=== PATIENT | male | born 1970 | race Caucasian/White ===

== ENCOUNTER 2023-09-09 14:37 | Emergency (ER) | payer MEDICARE, MEDICAID, SELFPAY ==
--- NOTE | 2023-09-09 14:42 | W.ED.PSYCHS ---
HPI - Psych General: Chief Complaint: Psychiatric Symptoms Stated Complaint: drug abuse and wants help Time Seen by Provider: 09/09/23 14:39 Source: patient Mode of arrival: EMS Limitations: no limitations History of Present Illness: Patient is a 52-year-old male who presents to ED today via EMS. Patient states he has been abusing his benzodiazepines and opiate prescription medication for over a decade. He states he often takes more than prescribed and when he runs out early he gets them off the street to tide him over until he is due for refill. He reportedly is requesting drug rehabilitation/detox. At some point he made some type of vague suicidal comment to his sister however patient adamantly states he is not suicidal. He told nursing staff he was not suicidal. He tested negative on her suicidal assessment screening exam. Patient is not homicidal or experiencing hallucinations. He has no physical complaints at this time. MD complaint: other (chronic drug abuse) Onset (ago): year(s) History of same: Yes Relieving factors: none Exacerbating factors: none Context: recent drug abuse Associated symptoms: Deny auditory hallucinations, visual hallucinations, homicidal ideation or suicidal ideation Treatments prior to arrival: none Review of Systems Psych: Denies: paranoia, visual hallucinations, auditory hallucinations, suicidal ideation or homicidal ideation Physical Exam Const: COMMON NORMALS: no acute distress, patient oriented x3, no limitations, alert and well nourished GENERAL APPEARANCE: disheveled ORIENTATION/CONSCIOUSNESS: Yes awake, Yes oriented to person, Yes oriented to place and Yes oriented to time Neuro: CLEMENTE COMA SCALE: document GCS findings Alexander coma scale eye opening: Spontaneous Alexander coma scale verbal response: Orientated Alexander coma scale motor response: Obey commands Alexander coma scale total score: 15 COMMON NORMALS: patient oriented x3, moves all extremities, no focal motor deficits, no sensory deficits noted and gait normal SENSORIUM/ORIENTATION: Yes alert, Yes oriented to person, Yes oriented to place and Yes oriented to time GAIT: Yes Normal gait present Psych: COMMON NORMALS: mental status grossly normal, Normal thought process present, cooperative, normal affect, speech normal, activity/motor behavior normal, denies hallucinations, denies homicidal ideation and denies suicidal ideation APPEARANCE: Yes grossly normal ATTITUDE: Yes calm ACTIVITY/MOTOR BEHAVIOR: Yes appropriate eye contact SPEECH: Yes normal speech MOOD & AFFECT: Yes euthymic mood THOUGHT PROCESS: Normal thought process present ATTENTION/CONCENTRATION: Yes attention grossly intact and Yes concentration grossly intact MEMORY/COGNITION: Yes memory grossly intact and Yes cognition grossly intact INSIGHT: Fair insight present (Psych) JUDGEMENT: Fair judgement present (Psych) Course Vital Signs: Vital signs: Vital Signs Temperature 98.7 F 09/09/23 14:47 Pulse Rate 93 09/09/23 14:47 Respiratory Rate 22 H 09/09/23 14:47 Blood Pressure 140/92 09/09/23 14:47 Pulse Oximetry 94 09/09/23 14:47 Oxygen Delivery Me thod Room Air 09/09/23 14:47 MDM - Psych Medical Decision Making Patient has told me repeatedly that he is not suicidal. He has told nursing staff he is not suicidal. He reports he is not taking excessive medications in any attempt to harm himself or in a suicide attempt. Patient needs a detox/drug rehabilitation facility. I had offered him admission to [facility] but he declines. I did speak to Dr. Tillman in regards to the vague suicidal statement he made to his sister. He feels patient is stable for discharge and agrees with decision to give him resources for drug rehabilitation facilities. During patient's discharge his sister called the ED very upset that we were not hospitalizing patient as she is concerned for his safety. I went in and spoke to patient yet again and confirmed that he is not suicidal. He has no plans to intentionally overdose on his prescription medications. He reports he is not taking an excess of these medications in attempt to kill/harm himself. He is not on a hold and I have no grounds at this time to place him on one. He was given the names, addresses, and phone numbers of two detox/rehab facilities in [facility]. No radiology studies performed this visit Discharge Plan Discharge Patient Disposition: Home Clinical Impression: Polysubstance abuse, Chronic drug abuse Condition: Stable Discharge Orders: Discharge ED (Routine); Ordered 09/09/23 Ordered By: Cindy Alcantar Activity Restrictions/Additional Instructions: As we discussed you indicated you do not wish hospitalization/inpatient psychiatric treatment at this time. You have indicated you are not suicidal or homicidal. If you begin experiencing these thoughts please contact 911 or return to the emergency department immediately. You may try to obtain substance abuse treatment and addiction counseling at [facility] located at [address] [place] [address]. Their phone number is [phone]. Another option is [facility] adult treatment facility located at [address] [place] [address]. Their phone number is [phone]. Coding Level of Care Code ED [employer] for Clifford Fontana
[2023-09-09 14:47] VITALS: BP 140/92; PULSE 93; RESP 22; TEMP 37.1; O2SAT 94
== END 2023-09-09 15:49 | disposition home or self-care (01) ==
PROVIDERS: Emergency Provider Physician Assistant
DX: F19.10 Other psychoactive substance abuse, uncomplicated (principal)
CPT/HCPCS: 99283

== ENCOUNTER 2023-09-09 17:36 | Emergency (ER) | payer MEDICARE, MEDICAID, SELFPAY ==
[2023-09-09 17:50] VITALS: BP 130/95; PULSE 117; RESP 16; TEMP 36.6; O2SAT 97; BMI 38.3
--- NOTE | 2023-09-09 18:03 | ED.C_ITS ---
HPI - Psych General: Chief Complaint: Psychiatric Symptoms Stated Complaint: SI Time Seen by Provider: 09/09/23 17:46 Source: patient Mode of arrival: ambulatory Limitations: no limitations History of Present Illness: Lennie 32-year-old male states that he has been having suicidal thoughts he states over the last few weeks. He has a long history of drug abuse states he is also like to get help getting off his drugs and he states he feels like this is causing him to be suicidal he has no specific plan denies any worsening proving factors. Associated symptoms: Reports depression and suicidal ideation Review of Systems Const: Denies: fever(s), chills, body aches or change in appetite Eyes: Denies: blurry vision or eye discomfort ENMT: Denies: throat pain or dental pain Card: Denies: chest pain Resp: Denies: dyspnea GI: Denies: abdominal pain, nausea, vomiting or diarrhea : Denies: dysuria Musc: Denies: neck pain or back pain Skin/Breast: Denies: rash Neuro: Denies: headache(s) Psych: Reports: depression and suicidal ideation Aaron/Lymph: Denies: easy bruising All/Imm: Denies: urticaria Physical Exam Const: COMMON NORMALS: no acute distress, patient oriented x3 and healthy appearing HENMT: COMMON NORMALS: normocephalic and atraumatic HEAD & SCALP: normocephalic and atraumatic Eye: COMMON NORMALS: Equal, round and reactive pupils present and EOMs intact bilaterally PUPIL: Yes Equal, round and reactive pupils present Neck/C-Spine: COMMON NORMALS: full ROM and supple Chest: COMMONS NORMALS: normal inspection of the chest and normal palpation of entire chest wall Resp: COMMON NORMALS: normal respiratory effort, No retractions, No use of accessory muscles and clear to auscultation bilaterally AUSCULTATION: clear to auscultation bilaterally Cardio: COMMON NORMALS: regular rate, regular rhythm and No murmurs present (Cardio) RATE: regular rate RHYTHM: regular rhythm GI: COMMON NORMALS: Normal to inspection, nondistended, normoactive bowel sounds present, Soft to palpation, non-tender and no masses PALPATION: Yes Soft to palpation Extremity: COMMON NORMALS: normal to inspection and full ROM Neuro: COMMON NORMALS: patient oriented x3, moves all extremities and no focal motor deficits Psych: COMMON NORMALS: mental status grossly normal, Normal thought process present and cooperative THOUGHT PROCESS: Normal thought process present THOUGHT CONTENT: Yes Suicidality present Skin: COMMON NORMALS: no rashes or lesions noted and no wounds GENERAL SKIN EXAM: no rashes or lesions noted Course Vital Signs: Vital signs: Vital Signs Temperature 97.9 F 09/09/23 17:50 Pulse Rate 117 H 09/09/23 17:50 Respiratory Rate 16 09/09/23 17:50 Blood Pressure 130/95 09/09/23 17:50 Pulse Oximetry 97 09/09/23 17:50 Oxygen Delivery Me thod Room Air 09/09/23 17:50 MDM - Psych Medical Decision Making Patient presents for suicidal ideation he is voluntarily is medically cleared is excepted to [facility] as we do not have any bed availability here. Medical Records I reviewed the patient's medical records. Lab Data I reviewed the patient's lab results. 09/09/23 17:52 09/09/23 17:52 Laboratory Results WBC 12.21 10^3/uL (3.29-11.43) H 09/09/23 17:52 RBC 4.74 10^6/uL (3.85-5.65) 09/09/23 17:52 Hgb 15.00 g/dL (11.27-16.99) 09/09/23 17:52 Hct 44.3 % (37-53) 09/09/23 17:52 MCV 93.5 fl (82-101) 09/09/23 17:52 MCH 31.6 pg (27-33) 09/09/23 17:52 MCHC 33.9 g/dL (30-55) 09/09/23 17:52 RDW 13.2 % (12.1-15.1) 09/09/23 17:52 Plt Count 347 10^3/cmm (157-399) 09/09/23 17:52 MPV 9.3 fL (7.4-10.4) 09/09/23 17:52 Neut % (Auto) 75.3 % 09/09/23 17:52 Lymph % (Auto) 15.0 % 09/09/23 17:52 [place] % (Auto) 9.1 % 09/09/23 17:52 Eos % (Auto) 0.0 % 09/09/23 17:52 Baso % (Auto) 0.3 % 09/09/23 17:52 Neut # (Auto) 9.19 10^3/uL (1.8-7.7) H 09/09/23 17:52 Lymph # (Auto) 1.8 10^3/uL (0.8-4.8) 09/09/23 17:52 [place] # (Auto) 1.1 10^3/uL (0.2-0.9) H 09/09/23 17:52 Eos # (Auto) 0.0 10^3/uL (0.0-0.8) 09/09/23 17:52 Baso # (Auto) 0.0 10^3/uL (0.0-0.1) 09/09/23 17:52 Nucleated RBC % (auto) 0 % 09/09/23 17:52 Nucleated RBCs # 0.0 /100WBC 09/09/23 17:52 Sodium 136 mmol/L (136-145) 09/09/23 17:52 Potassium 3.5 mmol/L (3.5-5.1) 09/09/23 17:52 Chloride 96 mmol/L (98-107) L 09/09/23 17:52 Carbon Dioxide 22 mmol/L (22-29) 09/09/23 17:52 Anion Gap 21.5 (5-19) H 09/09/23 17:52 BUN 14 mg/dL (6-20) 09/09/23 17:52 Creatinine 0.7 mg/dL (0.7-1.2) 09/09/23 17:52 GFR Calculation 118.0 mL/min (90-130) 09/09/23 17:52 Glucose 117 mg/dL (65-115) H 09/09/23 17:52 Calculated Osmolality 284 mOsm/kg (285-295) L 09/09/23 17:52 Calcium 10.2 mg/dL (8.5-10.5) 09/09/23 17:52 Total Bilirubin 1.1 mg/dL (0.15-1.2) 09/09/23 17:52 AST 18 U/L (0-40) 09/09/23 17:52 ALT 13 U/L (0-41) 09/09/23 17:52 Alkaline Phosphatase 90 U/L (40-130) 09/09/23 17:52 Total Protein 8.3 g/dL (6.6-8.7) 09/09/23 17:52 Albumin 4.9 g/dL (3.5-5.2) 09/09/23 17:52 Globulin 3.4 g/dL (1.3-4.6) 09/09/23 17:52 Salicylates < 0.3 mg/dL (3-10) L 09/09/23 17:52 Urine Opiates Screen Positive ng/mL (Negative) H 09/09/23 18:15 Acetaminophen < 5.0 ug/mL (10-30) L 09/09/23 17:52 Ur Barbiturates Screen Negative ng/mL (Negative) 09/09/23 18:15 Ur Phencyclidine Scrn Negative ng/mL (Negative) 09/09/23 18:15 Ur Amphetamines Screen Negative ng/mL (Negative) 09/09/23 18:15 U Benzodiazepines Scrn Positive ng/mL (Negative) H 09/09/23 18:15 Urine Cocaine Screen Negative ng/mL (Negative) 09/09/23 18:15 U Marijuana (THC) Screen Positive ng/mL (Negative) H 09/09/23 18:15 Ethyl Alcohol < 10 mg/dL (0-10) 09/09/23 17:52 SARS-CoV-2 Ag (Rapid) negative (Negative) 09/09/23 18:09 No radiology studies performed this visit Discharge Plan Discharge Patient Disposition: Xfer [facility] Clinical Impression: Suicidal ideation Condition: Stable Referrals: Jhon Blevins [Primary Care Provider] - Coding Level of Care Code ED [employer] for Clifford Fontana
[2023-09-09 18:07] LABS: Basophils % 0.3 %; Hematocrit 44.3 % (37-53); Lymphocytes # 1.8 10^3/uL (0.8-4.8); Mean Corpuscular HGB Conc 33.9 g/dL (30-55); Mean Corpuscular Hemoglobin 31.6 pg (27-33); Mean Corpuscular Volume 93.5 fl (82-101); Mean Platelet Volume 9.3 fL (7.4-10.4); Monocytes # 1.1 10^3/uL (0.2-0.9); Monocytes % 9.1 %; Neutrophils # 9.19 10^3/uL (1.8-7.7); Neutrophils % 75.3 %; Nucleated Red Blood Cells % 0 %; Platelet Count 347 10^3/cmm (157-399); Red Blood Count 4.74 10^6/uL (3.85-5.65); Red Cell Distribution Width 13.2 % (12.1-15.1); White Blood Count 12.21 10^3/uL (3.29-11.43)
[2023-09-09 18:16] LABS: Alanine Aminotransferase 13 U/L (0-41); Albumin Level 4.9 g/dL (3.5-5.2); Alkaline Phosphatase 90 U/L (40-130); Anion Gap 21.5 (5-19); Aspartate Amino Transferase 18 U/L (0-40); Blood Urea Nitrogen 14 mg/dL (6-20); Calcium 10.2 mg/dL (8.5-10.5); Carbon Dioxide 22 mmol/L (22-29); Chloride 96 mmol/L (98-107); Globulin 3.4 g/dL (1.3-4.6); Glucose 117 mg/dL (65-115); Osmolality Calculated 284 mOsm/kg (285-295); Potassium 3.5 mmol/L (3.5-5.1); Sodium 136 mmol/L (136-145); Total Bilirubin 1.1 mg/dL (0.15-1.2); Total Protein 8.3 g/dL (6.6-8.7)
[2023-09-09 18:25] LABS: Acetaminophen < 5.0 ug/mL (10-30); Alcohol Level < 10 mg/dL (0-10); Salicylate < 0.3 mg/dL (3-10)
[2023-09-09 18:31] LABS: SARS Covid-2 Antigen negative (Negative)
[2023-09-09 18:32] LABS: Amphetamines Screen Urine Negative (Negative); Barbiturates Screen Urine Negative (Negative); Benzodiazepines Screen Urine Positive (Negative); Cocaine Screen Urine Negative (Negative); Opiate Screen Urine Positive (Negative); PCP Screen Urine Negative (Negative); THC Screen Urine Positive (Negative)
--- NOTE | 2023-09-09 19:42 | ECG_ITS ---
[facility] Test Date: 2023-09-09 Pat Name: Robi Cintron Department: Room: Gender: [facility] Pricing Consultant: : 1970 Requested By: Anum Sanchez Order Number: [id number] Elvin MD: Bri Parry M.D. Measurements Intervals [place] Rate: 91 P: 93 TN: 147 QRS: 12 QRSD: 108 T: 55 QT: 359 QTc: 442 Interpretive Statements SINUS RHYTHM NONSPECIFIC T-WAVE ABNORMALITY No previous ECG available for comparison Electronically Signed On 09-09-2023 21:14:42 CDT by Bri Parry M.D. [id number]
[2023-09-09 23:56] VITALS: BP 130/95; PULSE 117; RESP 16; TEMP 36.6; O2SAT 97
== END 2023-09-09 23:57 ==
PROVIDERS: Emergency Provider Emergency Medicine; PCP Family Medicine
DX: R45.851 Suicidal ideations (principal); Z11.52 Encounter for screening for COVID-19
CPT/HCPCS: 80053; 80306; 80307; 85025; 87426; 93005; 99285